=== PATIENT | male | born 1975 | race Hispanic/Latino ===

== ENCOUNTER 2024-10-07 22:25 | Inpatient (IN) | payer SELFPAY ==
[~2024-10-07] VITALS: Ht 170.2 cm; Wt 97.5 kg
[2024-10-07] MEDS ORDERED: IOPAMIDOL 370 MG/ML 100 ML INFUS..BTL INJ ONE (23:11)
[2024-10-07] MEDS: SODIUM CHLORIDE 0.9% 1000ML 1,000 ML IV ONE (23:30)
[2024-10-07] MEDS: ONDANSETRON HCL INJ 2MG/ML 2ML 2 MG/ML VIAL IV STA (23:30)
[2024-10-08] VITALS (9 sets, daily range): BP systolic 128–140; BP diastolic 72–99; PULSE 73–89; RESP 17–21; TEMP 97.3–98.9; O2SAT 98–100
[2024-10-08] MEDS ORDERED: Morphine 4mg INJECTION 4 MG/ML INJ IV PRN (01:30)
[2024-10-08] MEDS ORDERED: ONDANSETRON HCL INJ 2MG/ML 2ML 2 MG/ML VIAL IV PRN ×2 (01:30→15:00)
[2024-10-08] MEDS ORDERED: SODIUM CHLORIDE FLUSH 10 ML SYR INJ PRN (01:30)
[2024-10-08] MEDS: SODIUM CHLORIDE 0.9% 1000ML 1,000 ML IV SCH (02:57)
[2024-10-08] MEDS ORDERED: DIPHENHYDRAMINE HCL 25 MG CAP PO PRN (15:00)
[2024-10-08] MEDS ORDERED: LIDOCAINE 4% PATCH TP PRN (15:00)
[2024-10-08] MEDS ORDERED: ALBUTEROL/IPRATROPIUM 3 ML NEB NEB PRN (15:00)
[2024-10-08] MEDS ORDERED: SIMETHICONE 80 MG CHEW PO PRN (15:00)
[2024-10-08] MEDS ORDERED: DOCUSATE SODIUM 100 MG CAP PO PRN (15:00)
[2024-10-08] MEDS ORDERED: ACETAMINOPHEN 325 MG TAB PO PRN (15:00)
[2024-10-08] MEDS ORDERED: POTASSIUM CHLORIDE 20 MEQ TAB CR PO PRN (15:00)
[2024-10-08] MEDS ORDERED: DEXTROSE 50% SYRINGE 50 ML IV PRN (15:00)
[2024-10-08] MEDS ORDERED: BENZONATATE 100 MG CAP PO PRN (15:00)
[2024-10-08] MEDS: DEXTROSE 5%/0.9% SOD CHL 1,000 ML IV SCH (15:56)
[2024-10-08 16:22] LABS: BASOPHILS % 0.5 % (0.0-1.0); EOSINOPHILS % 1.3 % (0.0-6.0); LYMPHOCYTES % 11.4 % (18.0-39.1); MONOCYTES % 8.7 % (4.4-11.3); NEUTROPHILS % 77.3 % (38.7-80.0); RED CELL DISTRIBUTION WIDTH 14.0 % (11.7-14.4)
[2024-10-08 16:40] LABS: EST GLOMERULAR FILTRATION RATE 105.0 ML/MIN (>=60)
[2024-10-08] MEDS ORDERED: MELATONIN 5 MG TABLET PO PRN (21:00)
[2024-10-08] MEDS ORDERED: FOLIC ACID 5 MG/ML VIAL ONE (22:21)
[2024-10-08] MEDS ORDERED: THIAMINE HCL INJ 100 MG/ML 2ML VIAL ONE (22:21)
[2024-10-08] MEDS ORDERED: MULTIVITAMINS INJECTION ONE (22:22)
[2024-10-08] MEDS ORDERED: SODIUM CHLORIDE 0.9% 1000ML 1,000 ML ONE (22:23)
[2024-10-08] MEDS: MULTIVITAMINS- 12 INJECTION 10 ML, FOLIC ACID MDV 1 MG, THIAMINE HCL INJ 100 MG in SODI... IV SCH (22:36)
[2024-10-08 22:38] LABS: INR 0.95
[2024-10-09] VITALS (9 sets, daily range): BP systolic 135–155; BP diastolic 85–96; PULSE 69–82; RESP 18–20; TEMP 97.2–98.8; O2SAT 96–100
[2024-10-09 02:32] LABS: % IRON SATURATION 11.0 % (15-50)
[2024-10-09 06:31] LABS: BASOPHILS % 0.5 % (0.0-1.0); EOSINOPHILS % 2.4 % (0.0-6.0); LYMPHOCYTES % 12.0 % (18.0-39.1); MONOCYTES % 10.1 % (4.4-11.3); NEUTROPHILS % 74.2 % (38.7-80.0); RED CELL DISTRIBUTION WIDTH 14.0 % (11.7-14.4)
[2024-10-09 07:04] LABS: EST GLOMERULAR FILTRATION RATE 107.0 ML/MIN (>=60)
[2024-10-09] MEDS ORDERED: PANTOPRAZOLE SOD 40 MG TABEC PO SCH (07:30)
[2024-10-10 00:47] VITALS: BP 154/93; PULSE 69; RESP 19; TEMP 97.6; O2SAT 98
[2024-10-10 08:19] LABS: BASOPHILS % 0.5 % (0.0-1.0); EOSINOPHILS % 2.4 % (0.0-6.0); LYMPHOCYTES % 12.0 % (18.0-39.1); MONOCYTES % 10.9 % (4.4-11.3); NEUTROPHILS % 73.6 % (38.7-80.0); RED CELL DISTRIBUTION WIDTH 13.8 % (11.7-14.4)
[2024-10-10 08:47] VITALS: PULSE 78; RESP 20; O2SAT 96
[2024-10-10 08:48] VITALS: BP 144/92; PULSE 69; RESP 20; TEMP 98; O2SAT 97
[2024-10-10] MEDS: IRON SUCROSE 100 MG in SODIUM CHLORIDE 0.9% 100 ML IV SCH (09:03)
[2024-10-10 09:07] LABS: EST GLOMERULAR FILTRATION RATE 106.0 ML/MIN (>=60)
[2024-10-10 16:20] VITALS: BP 142/89; PULSE 76; RESP 20; TEMP 98.4; O2SAT 95
[2024-10-10 20:00] VITALS: BP 140/91; PULSE 75; RESP 19; TEMP 98; O2SAT 99
[2024-10-10 20:36] VITALS: PULSE 84; RESP 18; O2SAT 100
[2024-10-11 06:42] LABS: BASOPHILS % 0.6 % (0.0-1.0); EOSINOPHILS % 1.6 % (0.0-6.0); LYMPHOCYTES % 8.3 % (18.0-39.1); MONOCYTES % 13.0 % (4.4-11.3); NEUTROPHILS % 75.9 % (38.7-80.0); RED CELL DISTRIBUTION WIDTH 13.6 % (11.7-14.4)
[2024-10-11 07:18] LABS: EST GLOMERULAR FILTRATION RATE 107 ML/MIN (>=60)
[2024-10-11 08:20] VITALS: PULSE 84; RESP 18; O2SAT 98
[2024-10-11 09:25] VITALS: BP 161/97; PULSE 79; RESP 18; TEMP 98.9; O2SAT 100
[2024-10-11 13:09] VITALS: BP 139/95; PULSE 92; RESP 18; TEMP 98.8; O2SAT 97
[2024-10-11 17:41] VITALS: BP 166/93; PULSE 94; RESP 18; TEMP 98.4; O2SAT 98
[2024-10-11 19:09] VITALS: PULSE 115; RESP 18; O2SAT 98
[2024-10-11 20:00] VITALS: BP 137/95; PULSE 118; RESP 18; TEMP 98.2; O2SAT 100
[2024-10-12 01:02] VITALS: BP 127/86; PULSE 87; RESP 16; TEMP 99.6; O2SAT 98
[2024-10-12 07:33] VITALS: PULSE 91; RESP 18; O2SAT 97
[2024-10-12 09:52] VITALS: BP 128/84; PULSE 70; RESP 20; TEMP 98.2; O2SAT 96
[2024-10-12 10:03] LABS: LYMPHOCYTES % 9.7 % (18.0-39.1); NEUTROPHILS % 80.0 % (38.7-80.0); RED CELL DISTRIBUTION WIDTH 13.6 % (11.7-14.4)
[2024-10-12 10:06] LABS: BASOPHILS % 0.5 % (0.0-1.0); EOSINOPHILS % 1.8 % (0.0-6.0); MONOCYTES % 7.2 % (4.4-11.3)
[2024-10-12 10:26] LABS: EST GLOMERULAR FILTRATION RATE 105.0 ML/MIN (>=60)
[2024-10-12 12:13] VITALS: BP 144/94; PULSE 96; RESP 19; TEMP 98.2; O2SAT 100
[2024-10-12 13:31] VITALS: PULSE 89; RESP 18; O2SAT 96
[2024-10-12 15:41] VITALS: BP 144/95; PULSE 87; RESP 20; TEMP 97.9; O2SAT 99
== END 2024-10-12 18:52 | disposition home or self-care (01) | DRG 391 ==
LOC: FSED 22:38 → ERHOLD 10-08 01:28 → MED/SURG2 10-08 02:38 → OBSVTOIN 10-08 14:59
PROVIDERS: ADMIT Internal Medicine; ATTEND Internal Medicine
DX: K29.80 Duodenitis without bleeding (principal); K68.3 Retroperitoneal hematoma; D64.9 Anemia, unspecified; F10.20 Alcohol dependence, uncomplicated; D50.9 Iron deficiency anemia, unspecified
CPT/HCPCS: 36415; 74177; 74240; 80048; 80053; 80076; 81003; 82607; 82728; 82746; 82948; 83540; 83690; 83735; 84466; 85014; 85018; 85025; 85045; 85610; 94799; 96374; 99284; J1756; J2405; J2470; J2543; J3411; J7030; J7042; J7050; Q9967